=== PATIENT | female | born 1960 | race African-American/Black ===

== ENCOUNTER 2017-02-24 11:32 | Emergency (ER) | payer MEDICAID ==
[~2017-02-24] VITALS: Ht 170.2 cm; Wt 96.0 kg
[~2017-02-24 11:32] MED LIST: ALBU18HF2 IH; AMLO5TAB4 PO; ARAV20 PO; ASPI81TA2 PO; CLOP75TA33 PO; FURO40TA5 PO; GABA-531 PO; LISI-604 PO; METO100T5 PO; NITR0.4T3 SL; TRAM50TA3 PO
[2017-02-24 14:01] LABS: BASOPHILS % 0.8 % (0.0-2.0); EOSINOPHILS % 1.1 % (0.0-5.0); HEMATOCRIT. 43.2 % (36.0-48.0); HEMOGLOBIN. 14.2 g/dL (12.0-16.0); MEAN CORPUSCULAR HEMOGLOBIN 27.4 pg (28.0-32.0); MEAN CORPUSCULAR HGB CONC 32.8 g/dL (31.0-37.0); MEAN CORPUSCULAR VOLUME 83.6 fL (81.0-99.0); MEAN PLATELET VOLUME 10.4 fl (7.4-10.4); MONOCYTES % 8.1 % (2.0-8.0); PLATELET 184 x1000/uL (130-400); RED BLOOD CELL COUNT 5.17 mill/uL (4.2-5.4); RED CELL DISTRIBUTION WIDTH 14.7 % (11.6-14.6); WHITE BLOOD COUNT 7.1 x1000/uL (4.5-11.0)
[2017-02-24 14:06] LABS: CHLORIDE 105 mEq/L (98-107); INDEX HEMOLYSI 2 (1-3); INDEX ICTERIC 1 (1-4); INDEX LIPEMIC 1 (1-3); PROTHROMBIN TIME 10.6 sec
[2017-02-24 14:15] LABS: ALANINE AMINOTRANSFERASE 23 IU/L (13-61); ALBUMIN 4.1 g/dL (3.4-5.0); ANION GAP 12; CARBON DIOXIDE 30 mEq/L (21-32); LIPASE 150 IU/L (73-393); UREA NITROGEN BLOOD 14 mg/dL (7-21); eGFR > 60 mL/min (>60)
[2017-02-24 14:17] LABS: NT PRO B-TYPE NATRIURETIC PEP 68 pg/mL (5-125); TROPONIN I < 0.02 ng/mL (0.00-0.04)
[2017-02-24 14:22] LABS: D-DIMER 0.19 mg/L FEU (<0.50)
[2017-02-24 14:37] LABS: CLARITY URINE CLOUDY (CLEAR); COLOR URINE YELLOW (YELLOW); GLUCOSE URINE NEGATIVE (NEGATIVE); KETONES URINE NEGATIVE (NEGATIVE); LEUKOCYTE ESTERASE URINE NEGATIVE (NEGATIVE); NITRITE URINE NEGATIVE (NEGATIVE); OCCULT BLOOD URINE NEGATIVE (NEGATIVE); PH URINE 6.5 (4.5-8.0); PROTEIN URINE NEGATIVE (NEGATIVE); SPECIFIC GRAVITY URINE 1.018 (1.005-1.030); UROBILINOGEN URINE 0.2 E.U./dL (0.2-1.0)
[2017-02-24 14:53] LABS: BACTERIA URINE NONE SEEN; RBC URINE 0-2 /hpf (0-2); SQUAMOUS EPITHELIAL CELL URINE RARE /lpf (RARE/1+); WBC URINE 0-2 /hpf (0-2)
[2017-02-24 14:54] LABS: AMORPHOUS SEDIMENT URINE 1+ /lpf
[2017-02-24] MEDS ORDERED: LORAZEPAM 2MG/ML CPJ IV NR (15:00)
[2017-02-24] MEDS ORDERED: MORPHINE SULFATE 2 MG/ML CPJ (NOT FOR IM USE) IV NR (15:00)
[2017-02-24 16:43] VITALS: BP 157/79
== END 2017-02-24 16:46 | disposition home or self-care (01) ==
LOC: ER 13:12
DX: F41.9 Anxiety disorder, unspecified (principal); I10 Essential (primary) hypertension; M19.90 Unspecified osteoarthritis, unspecified site; I25.10 Atherosclerotic heart disease of native coronary artery without angina pectoris; Z86.73 Personal history of transient ischemic attack (TIA), and cerebral infarction without residual deficits; Z88.3 Allergy status to other anti-infective agents; Z90.49 Acquired absence of other specified parts of digestive tract; Z90.710 Acquired absence of both cervix and uterus
CPT/HCPCS: 36415; 71010; 80053; 81001; 83605; 83690; 83880; 84484; 85025; 85379; 85610; 87040; 87086; 93005; 96374; 99285; J2060; J2270; Z7610

== ENCOUNTER 2017-06-13 13:37 | Emergency (ER) | payer MEDICAID, OTHER ==
[~2017-06-13] VITALS: Ht 170.2 cm; Wt 96.0 kg
[~2017-06-13 13:37] MED LIST changes: +ASPI-1160 PO; -ASPI81TA2 PO
[2017-06-13 13:50] VITALS: BP 159/86
[2017-06-13 15:34] LABS: BASOPHILS % 0.5 % (0.0-2.0); EOSINOPHILS % 1.2 % (0.0-5.0); HEMATOCRIT. 40.9 % (36.0-48.0); HEMOGLOBIN. 13.4 g/dL (12.0-16.0); LYMPHOCYTES % 22.9 % (20.0-50.0); MEAN CORPUSCULAR HEMOGLOBIN 27.4 pg (28.0-32.0); MONOCYTES % 6.6 % (2.0-8.0); NEUTROPHILS % 68.8 % (40.0-76.0); PLATELET 173 x1000/uL (130-400); RED BLOOD CELL COUNT 4.88 mill/uL (4.2-5.4); RED CELL DISTRIBUTION WIDTH 14.7 % (11.6-14.6)
[2017-06-13 15:38] LABS: CARBON DIOXIDE 28 mEq/L (21-32); CHLORIDE 107 mEq/L (98-107); PARTIAL THROMBOPLASTIN TIME 24.9 sec (24.0-34.0); PROTHROMBIN TIME 10.7 sec
[2017-06-13 15:43] LABS: TROPONIN I < 0.02 ng/mL (0.00-0.04)
== END 2017-06-13 15:55 | disposition left against medical advice (07) ==
LOC: ER 15:34 → EDBEDREQ 15:42 → ER 15:55 → CANBEDREQ 17:27
DX: R07.2 Precordial pain (principal); R06.02 Shortness of breath; M79.89 Other specified soft tissue disorders; I10 Essential (primary) hypertension; M19.90 Unspecified osteoarthritis, unspecified site; I47.1 Supraventricular tachycardia; Z79.82 Long term (current) use of aspirin; Z88.1 Allergy status to other antibiotic agents
CPT/HCPCS: 36415; 80053; 83690; 83880; 84484; 85025; 85610; 85730; 93005; 99285

== ENCOUNTER 2017-07-12 12:29 | Emergency (ER) | payer OTHER ==
[~2017-07-12] VITALS: Ht 170.2 cm; Wt 96.0 kg
[2017-07-12 14:40] LABS: BASOPHILS % 0.6 % (0.0-2.0); EOSINOPHILS % 1.2 % (0.0-5.0); HEMATOCRIT. 39.2 % (36.0-48.0); LYMPHOCYTES % 25.9 % (20.0-50.0); MEAN CORPUSCULAR HEMOGLOBIN 27.6 pg (28.0-32.0); MEAN CORPUSCULAR VOLUME 83.2 fL (81.0-99.0); MEAN PLATELET VOLUME 9.9 fl (7.4-10.4); MONOCYTES % 7.8 % (2.0-8.0); NEUTROPHILS % 64.5 % (40.0-76.0); PLATELET 183 x1000/uL (130-400); RED BLOOD CELL COUNT 4.71 mill/uL (4.2-5.4); RED CELL DISTRIBUTION WIDTH 14.3 % (11.6-14.6)
[2017-07-12 14:46] LABS: PARTIAL THROMBOPLASTIN TIME 24.7 sec (23.4-31.0); PROTHROMBIN TIME 10.7 sec (9.4-11.6)
[2017-07-12 14:55] LABS: CARBON DIOXIDE 31 mEq/L (21-32); CHLORIDE 105 mEq/L (98-107); CREATINE KINASE 161 IU/L (26-192); TROPONIN I < 0.02 ng/mL (0.00-0.04)
[2017-07-12 14:57] LABS: CREATINE KINASE MB FRACTION 2.5 ng/mL (0.5-3.6)
[2017-07-12 17:40] VITALS: BP 124/70
== END 2017-07-12 17:40 | disposition home or self-care (01) ==
LOC: ER 14:49 → ENRESERV 15:26 → CANRESERV 15:26 → ENRESERV 15:36 → ER 17:40 → CANBEDREQ 17:41
DX: R07.9 Chest pain, unspecified (principal); R06.02 Shortness of breath; F17.200 Nicotine dependence, unspecified, uncomplicated; I10 Essential (primary) hypertension; M19.90 Unspecified osteoarthritis, unspecified site; Z86.73 Personal history of transient ischemic attack (TIA), and cerebral infarction without residual deficits; Z88.1 Allergy status to other antibiotic agents; Z79.82 Long term (current) use of aspirin; Z79.01 Long term (current) use of anticoagulants
CPT/HCPCS: 36415; 71010; 80053; 82550; 82553; 83690; 83880; 84484; 85025; 85610; 85730; 93005; 99285; Z7610